=== PATIENT | female | born 1995 | race Caucasian/White ===

== ENCOUNTER 2016-12-23 11:17 | Emergency (ER) | payer OTHER ==
[~2016-12-23] VITALS: Ht 172.7 cm; Wt 52.3 kg
[~2016-12-23 11:17] MED LIST: Birth Control; KLONOPIN 0.5MG0.5 MG PO; SYNTHROID0.112 MG/T PO; ZOLOFT 50MG50 MG PO
[2016-12-23 11:19] VITALS: BP 113/68; PULSE 105; TEMP 98.8
[2016-12-23] MEDS ORDERED: BACTRIM DS 8001 TAB PO (11:22)
[2016-12-23] MEDS ORDERED: DOXYCYCLINE 10100 MG PO (13:05)
== END 2016-12-23 13:14 | disposition home or self-care (01) ==
LOC: COL.ER 11:17
DX: L02.211 Cutaneous abscess of abdominal wall (principal); L02.31 Cutaneous abscess of buttock; B27.90 Infectious mononucleosis, unspecified without complication; I45.10 Unspecified right bundle-branch block; L02.416 Cutaneous abscess of left lower limb; L02.415 Cutaneous abscess of right lower limb